=== PATIENT | female | born 1950 | race Caucasian/White ===

== ENCOUNTER 2017-03-16 20:32 | Inpatient (IN) | payer OTHER ==
[~2017-03-16] VITALS: Ht 152.4 cm; Wt 63.5 kg
[2017-03-16 21:58] LABS: BASOPHIL % 0.4 % (0-2); PLATELET COUNT 239 x10^3mcL (130-400); RED CELL DISTRIBUTION WIDTH 14.1 % (11.5-14.5)
[2017-03-16 22:06] LABS: CALCIUM 8.6 mg/dL (8.5-10.1); CARBON DIOXIDE 27.2 mmol/L (21-32); POTASSIUM SERUM 3.7 mmol/L (3.5-5.1)
[2017-03-16 22:11] LABS: BILIRUBIN TOTAL 0.6 mg/dL (0.20-1.00); TOTAL PROTEIN, SERUM 6.6 g/dL (6.4-8.2)
[2017-03-16 22:16] LABS: ALBUMIN 3.1 g/dL (3.4-5.0)
[2017-03-16 22:27] LABS: CK-MB 12.6 ng/mL (0-3.6)
[2017-03-17] VITALS (7 sets, daily range): BP systolic 107–153; BP diastolic 62–98
[2017-03-17 02:57] LABS: T3 TOTAL 0.92 ng/mL
[2017-03-17 03:00] LABS: CHOLESTEROL/HDL RATIO 2.3
[2017-03-17 03:03] LABS: FREE T4 1.29 ng/dL (0.76-1.46); FREE THYROXINE INDEX 2.9 ug/dL (1.4-4.5); T4(THYROXINE) 8.4 ug/dL (4.7-13.3)
[2017-03-17 06:19] LABS: CALCIUM 8.4 mg/dL (8.5-10.1); CARBON DIOXIDE 28.6 mmol/L (21-32); CHLORIDE SERUM 100 mmol/L (98-107); CREATININE SERUM 0.9 mg/dL (0.6-1.0); GFR1 > 60 mL/min; GLUCOSE SERUM 95 mg/dL (74-106); MAGNESIUM 2.1 mg/dL (1.8-2.4); PHOSPHOROUS 2.7 mg/dL (2.5-4.9); POTASSIUM SERUM 3.8 mmol/L (3.5-5.1); SODIUM SERUM 137 mmol/L (136-145)
[2017-03-17 06:52] LABS: PLATELET COUNT 240 x10^3mcL (130-400); RED CELL DISTRIBUTION WIDTH 14.7 % (11.5-14.5)
[2017-03-17 08:07] LABS: UA SPECIFIC GRAVITY <=1.005 (1.005-1.035); microscopic required? YES; urine erythrocyte TRACE (NEGATIVE)
[2017-03-17 09:31] LABS: BAND NEUTROPHIL 13 % (0-10); BASOPHIL 0 % (0-2); MONOCYTE 4 % (0-7); SEGMENTED NEUTROPHILS 62 % (37-75)
[2017-03-17 09:32] LABS: PLATELET MORPHOLOGY PLATELETS NORMAL
[2017-03-17 09:42] LABS: rbc morphology (normal/abnorm) ABNORMAL (NORMAL)
[2017-03-17] MEDS ORDERED: LIPI10 PO (17:51)
[2017-03-18 06:17] VITALS: BP 114/79
[2017-03-18 06:28] LABS: BASOPHIL % 0.3 % (0-2); PLATELET COUNT 222 x10^3mcL (130-400)
[2017-03-18 06:37] LABS: CALCIUM 7.9 mg/dL (8.5-10.1); CARBON DIOXIDE 27.7 mmol/L (21-32); CHLORIDE SERUM 109 mmol/L (98-107); CREATININE SERUM 0.8 mg/dL (0.6-1.0); GFR1 > 60 mL/min; GLUCOSE SERUM 91 mg/dL (74-106); PHOSPHOROUS 3.7 mg/dL (2.5-4.9); POTASSIUM SERUM 3.6 mmol/L (3.5-5.1); SODIUM SERUM 144 mmol/L (136-145)
[2017-03-18 06:59] LABS: RED CELL DISTRIBUTION WIDTH 14.9 % (11.5-14.5)
[2017-03-18 08:30] VITALS: BP 143/85
[2017-03-18 12:56] VITALS: BP 119/74
[2017-03-18 13:32] VITALS: BP 119/74
[2017-03-18] MEDS ORDERED: VIS25 PO (13:35)
[2017-03-18] MEDS ORDERED: ZES5 PO (13:35)
[2017-03-18] MEDS ORDERED: ORA MM (13:35)
[2017-03-18] MEDS ORDERED: METOPROLOL TART25 M1 PO (13:35)
[2017-03-18] MEDS ORDERED: ATIVAN1 MG PO (13:38)
== END 2017-03-18 14:55 | disposition short-term general hospital (02) | DRG 280 ==
LOC: ED 20:32 → DU 23:12
PROVIDERS: Emergency Medicine; ADMIT Family Medicine
DX: I21.4 Non-ST elevation (NSTEMI) myocardial infarction (principal); N17.0 Acute kidney failure with tubular necrosis; N39.0 Urinary tract infection, site not specified; E44.0 Moderate protein-calorie malnutrition; D64.9 Anemia, unspecified
CPT/HCPCS: 83880; 84439; J0696; J1644; J2060; J2270; J7030; Q0092; Q0177